=== PATIENT | female | born 1975 | race African-American/Black ===

== ENCOUNTER 2018-04-22 22:49 | Inpatient (IN) | payer SELFPAY ==
[2018-04-22] MEDS ORDERED: Ondansetron HCl/PF 4 MG/2 ML Vial IVP PRN (23:13)
[2018-04-22 23:35] LABS: INR-International Normal Ratio 1.1; PTT 26.5 SEC (22.9-36.1); Prothrombin Time 14.1 SEC (12.0-14.7)
[2018-04-22 23:51] LABS: CKMB 0.6 ng/mL (0-6.6); Troponin I Less than 0.010 ng/mL (< 0.028)
--- NOTE | 2018-04-23 00:35 | HP-2 ---
CODE STATUS: FULL CODE. PRIMARY CARE PHYSICIAN: Nata Rondon PA-C TIME OF EVALUATION: 11:30 p.m. CHIEF COMPLAINT: Left lower extremity pain. HISTORY OF PRESENT ILLNESS: This is a 42-year-old female patient, no significant past medical histor y, came to the hospital after having left lower extremity severe pain, swelling, associated with diff iculty bearing weight with the left lower extremity due to pain, the patient reported that she believ es was triggered by a recent fall that she had a few days ago, no alleviating factors, DVT studies we re done. She was found to have a DVT and also pulmonary embolism. For that reason, she is staying i n the hospital and placing anticoagulation. Symptoms are reported as severe. REVIEW OF SYSTEMS: Constitutional: No fever, no chills. Generalized weakness. Respiratory: No co ugh, no sputum production, no shortness of breath. Cardiovascular: No chest pain, palpitations, yoanna rtness of breath. Gastrointestinal: No nausea, no vomiting, diarrhea or abdominal pain. SEXER: No d izziness, headache, feeling lightheaded. Genitourinary: No burning with urination. Extremities: L eft lower extremity swelling, redness, tenderness. All other systems were reviewed and negative exce pt for the findings mentioned above. PAST MEDICAL HISTORY: No significant history was reported. SOCIAL HISTORY: Lives with family. PSYCH HISTORY: None reported. FAMILY HISTORY: Reported as negative. ALLERGIES: No known drug allergies. HOME MEDICATIONS: No reported home medications. PHYSICAL EXAMINATION: VITAL SIGNS: On presentation blood pressure 135/88 with a heart rate 77, respiratory rate was 20, te mperature 99.3. GENERAL: Patient is alert, oriented, not in any acute distress. HEENT: Normocephalic, conjunctivae. Moist oral mucosa. Eyes anicteric. NECK: No JVD. RESPIRATORY: Bilateral air entry. No rales, no wheezing. Symmetric expansion. CARDIOVASCULAR: Normal rate, regular rhythm. No murmurs, no gallop. No edema. ABDOMEN: Soft, normal bowel sounds. MUSCULOSKELETAL: Baseline range of motion and strength. No tenderness. SKIN: Warm and intact. No pallor, no rash, no redness. NEUROLOGIC: Baseline sensorium. No evidence of any new focal weakness. Baseline speech. Cranial n erve, sensory intact. PSYCHIATRIC: Good mood, no anxiety, oriented optimal judgment. EXTREMITIES: Left lower extremity swelling, redness, pain. LABORATORY DATA: Reviewed. White count 9.5, hemoglobin 10, bands 2%, platelet count 303. Coagulati on, the patient had a positive D-dimer. Reason for evaluation was negative. Chemistry: Potassium 4 .1, sodium 141, chloride 113, carbon dioxide 15, anion gap 17, BUN 11, creatinine 0.7, glucose 9. Tr oponin was negative. LFTs were negative. CT angio was done. The patient has bilateral pulmonary em boli and knee x-ray was done recently showed no evidence of osseous abnormality. Small joint effusio n cannot be excluded, but is not confirmed. The patient was placed in the hospital with following medical problems. PROBLEMS: 1. Pulmonary embolism, bilateral, patient started on anticoagulation, has been hemodynamically stabl e, we will place the patient on telemetry, will monitor overnight, patient will need Lovenox and Coum garrett bridge. We will start tonight. The patient has reported that she has no insurance, so she migh t not be able to afford the new anticoagulation, details were given regarding treatment and duration of treatment. 2. DVT prophylaxis. The patient on full anticoagulation. 3. Risk assignment: Patient has a very high risk for complication due to pulmonary embolism.
[2018-04-23 02:59] LABS: Calc. Creatinine Clearance 142 mL/min (70-130); Estimated GFR-MDRD Greater than 90
[2018-04-23 03:02] LABS: Hemoglobin 10.5 g/dL (12.0-16.0); Platelet Count 264 thou/uL (130-400)
[2018-04-23] MEDS: Acetaminophen 325 MG TAB PO PRN ×2 (04:35→08:50)
[2018-04-23 04:43] LABS: #Basophils 0.1 thou/uL (0.0-0.2); #Eosinphils 0.4 thou/uL (0.0-0.7); #Monocytes 0.9 thou/uL (0.11-0.59); #Neutrophils 4.2 thou/uL (1.40-6.50); %Basophils 0.7 % (0.0-1.0); %Eosinophils 4.5 % (0.0-10.0); %Lymphocytes 35.6 % (21.0-51.0); %Neutrophils 49.2 % (42.0-75.0); Hemoglobin 10.2 g/dL (12.0-16.0); Mean Corpuscular HGB CONC 31.6 g/dL (32.0-36.0); Mean Corpuscular Hemoglobin 23.9 pg (27.0-31.0); Mean Corpuscular Volume 75.5 fL (78.0-98.0); Mean Platelet Volume 7.9 fL (7.4-10.4); Platelet Count 266 thou/uL (130-400); RBC Distribution Width 17.7 % (11.5-14.5); Red Blood Cell (RBC) Count 4.26 mill/uL (4.20-5.40); White Blood Cell (WBC) Count 8.5 thou/uL (4.8-10.8)
[2018-04-23 04:52] LABS: Anion Gap 11 mmol/L (10-20); BUN (Urea Nitrogen) 9 mg/dL (7.0-18.7); Calc. Creatinine Clearance 138 mL/min (70-130); Carbon Dioxide 20 mmol/L (22-29); Chloride 111 mmol/L (98-107); Estimated GFR-MDRD Greater than 90; Glucose 82 mg/dL (70-105); Potassium 3.8 mmol/L (3.5-5.1); Sodium 138 mmol/L (136-145)
[2018-04-23] MEDS: Enoxaparin Sodium 100 MG/ML SYRINGE SC SCH ×2 (08:50→21:46)
[2018-04-23] MEDS ORDERED: Enoxaparin Sodium 80 MG/0.8 ML SYRINGE SC SCH (09:00)
[2018-04-23] MEDS: traMADol HCl 50 MG TAB PO PRN ×3 (14:22→21:47)
[2018-04-23 15:20] LABS: INR-International Normal Ratio 1.1; PTT 28.5 SEC (22.9-36.1); Prothrombin Time 13.8 SEC (12.0-14.7)
[2018-04-23 15:22] LABS: D-Dimer Test 3.33 *mcg/mL (0.27-0.43)
--- NOTE | 2018-04-23 17:23 | ULT ---
ULTRASOUND WITH DOPPLER DUPLEX VENOUS LOWER EXTREMITY LEFT 04/23/18 CPT: 05141 ICD-10-PCS: [id number] HISTORY: Edema, pain and swelling of left lower extremity. TECHNIQUE: Color flow Doppler, spectral waveform analysis of pulsed Doppler, and kirk-scale imaging with james chino and augmentation, were used to evaluate the bilateral common femoral, femoral, popliteal, housekeeping aid ior tibial, and superficial femoral, veins; and the proximal portions of the profunda femoral and gre ater saphenous, veins. FINDINGS: There is incomplete compressibility and diminished flow within the popliteal vein in the left lower e xtremity compatible with partially occlusive thrombus. No additional sites of DVT evident within the imaged left lower extremity. IMPRESSION: Partially occlusive DVT of the left popliteal vein. The findings were conveyed to the patient's nurse, Krystin, at time of the exam. Code CR POS: MARCOS
[2018-04-24] MEDS: Enoxaparin Sodium 100 MG/ML SYRINGE SC SCH ×2 (09:16→21:03)
[2018-04-24] MEDS: Acetaminophen/Codeine 30-300mg Tablet PO PRN ×3 (09:20→21:04)
[2018-04-24] MEDS: Nicotine 14 MG PATCH TD SCH (09:20)
--- NOTE | 2018-04-24 20:17 | PDOC.PN ---
- Subjective Encounter Start Date: 04/24/18 Encounter Start Time: 09:00 Patient seen and examined for DVT/PE. LLE pain +. No overnight events. No CP/ SOB. No bleeding - Objective Resuscitation Status: Resuscitation Status FULL:Full Resuscitation MAR Reviewed: Yes Vital Signs & Weight: Vital Signs (12 hours) Temp Pulse Resp BP Pulse Ox 04/24/18 15:10 98 04/24/18 15:07 98.6 F 82 20 136/62 98 04/24/18 11:45 72 20 125/76 100 04/24/18 09:20 98.3 F Weight Weight 191 lb 11.2 oz I&O: 04/23/18 04/24/18 04/25/18 06:59 06:59 06:59 Intake Total 200 1110 740 Output Total 201 703 6197 Balance -100 710 -1260 Result Diagrams: 04/23/18 04:29 04/23/18 04:29 Additional Labs: Accuchecks 04/23/18 20:55 POC Glucose 100 Radiology Reviewed by me: Yes (CTA - PE, Doppler - LLE DVT) EKG Reviewed by me: Yes (Tele SR) Phys Exam - Physical Examination Constitutional: NAD Respiratory: no wheezing, no rales, no rhonchi, clear to auscultation bilateral Cardiovascular: RRR, no significant murmur, no rub no heaves Gastrointestinal: soft, non-tender, no distention, positive bowel sounds Musculoskeletal: pulses present LLE edema Neurological: non-focal, moves all 4 limbs Dx/Plan (1) Bilateral pulmonary embolism Code(s): I26.99 - OTHER PULMONARY EMBOLISM WITHOUT ACUTE COR PULMONALE Status : Acute Plan: - Comment: Cont Lovenox, Will start Eliquis at dc, Risk of anticoag discussed - Patient stated understanding (2) Left leg DVT Code(s): I82.402 - ACUTE EMBOLISM AND THOMBOS UNSP DEEP VEINS OF L LOW EXTREM Status: Acute Qualifiers: Affected thrombotic vein of extremity: popliteal Plan: - Comment: Plan as above (3) Obesity (BMI 30.0-34.9) Code(s): E66.9 - OBESITY, UNSPECIFIED Status: Acute Comment: Counselled. (4) Tobacco dependence Code(s): F17.200 - NICOTINE DEPENDENCE, UNSPECIFIED, UNCOMPLICATED Status: Acute Plan: - Comment: Counselled. Start Nicotin patch per patient request. - Plan out of bed/ambulate, DVT proph w/lovenox Add Tylenol #3 for LLE pain Review of Systems - Review of Systems Respiratory: negative: Cough, Dry, Shortness of Breath, Hemoptysis, SOB with Excertion, Pleuritic Pain, Sputum, Wheezing Cardiovascular: negative: chest pain, palpitations, orthopnea, paroxysmal nocturnal dyspnea, edema, light headedness, other - Medications/Allergies Allergies/Adverse Reactions: Allergies Allergy/AdvReac Type Severity Reaction Status Date / Time No Known Drug Allergies Allergy Verified 04/23/18 00:18 Medications: Current Medications Acetaminophen (Tylenol) 650 mg PO Q4H PRN PRN Reason: Headache/Fever or Pain Last Admin: 04/23/18 08:50 Dose: 650 mg Acetaminophen/Codeine Phosphate (Tylenol #3) 1 tab PO Q4H PRN PRN Reason: Moderate Pain (4-6) Last Admin: 04/24/18 17:34 Dose: 1 tab Enoxaparin Sodium (Lovenox) 90 mg SC 0900,2100 GORGE Last Admin: 04/24/18 09:16 Dose: 90 mg Nicotine (Nicoderm Patch) 14 mg TD Q24HR GORGE Last Admin: 04/24/18 09:20 Dose: 14 mg Ondansetron HCl (Zofran) 4 mg IVP Q6H PRN PRN Reason: Nausea/Vomiting Sodium Chloride (Flush - Normal Saline) 10 ml IVF PRN PRN PRN Reason: Saline Flush Last Admin: 04/24/18 09:21 Dose: 10 ml
[2018-04-24 21:27] LABS: Cardiolipin IgA Ab 2.4 APL-U/mL (<14 Negative); Cardiolipin IgG Ab 1.2 GPL-U/mL (<10 Negative); Cardiolipin IgM Ab Less than 0.8 MPL-U/mL (<10 Negative); EliA APS New Method **** NEW METHOD ****
[2018-04-25 02:18] LABS: Hemoglobin 10.2 g/dL (12.0-16.0); Platelet Count 264 thou/uL (130-400)
[2018-04-25 02:34] LABS: Calc. Creatinine Clearance 138 mL/min (70-130); Estimated GFR-MDRD Greater than 90
[2018-04-25] MEDS: diphenhydrAMINE 50 MG/ML VIAL IVP PRN ×2 (03:17→08:30)
[2018-04-25] MEDS: Nicotine 14 MG PATCH TD SCH (08:31)
[2018-04-25] MEDS: Enoxaparin Sodium 100 MG/ML SYRINGE SC SCH (08:31)
[2018-04-25 15:21] VITALS: BP 111/74; TEMP 99.2
--- NOTE | 2018-04-26 14:29 | DIS ---
DATE OF DISCHARGE: 04/25/2018 DISCHARGE DISPOSITION: Home. DISCHARGE FOLLOWUP: Follow up with primary care physician, Nata Rondon, in 1 week. DISCHARGE MEDICATIONS: Eliquis 10 mg twice a day for 1 week, followed by 5 mg twice a day. Risks not limited to life-threatening bleeding, discussed with the patient. She stated understanding . BRIEF HOSPITAL COURSE: The patient is a 42-year-old female with tobacco dependence and contraception for fibroids/menorrhagia, presented to the hospital with left lower extremity pain. Please refer to the history and physical for further details. The patient was admitted to the hospital with a diagn osis of pulmonary embolism with left lower extremity DVT. She was started on Lovenox that has been c hanged to Eliquis at discharge. Risks not limited to life-threatening bleeding was discussed with th e patient. She stated understanding. DIAGNOSTIC TESTS: 1. CBC showed WBC 9.5 with hemoglobin 10. 2. D-dimer was 2.93. 3. Troponins were negative. 4. BNP was 25.3. 5. Thrombosis profile is pending at this time. The patient was advised to follow up. 6. CT angiogram of the chest showed bilateral pulmonary embolism. 7. Doppler of left lower extremity showed partially occlusive deep venous thrombosis in the left pop liteal vein. FINAL DIAGNOSES: 1. Bilateral pulmonary embolism. 2. Left leg deep venous thrombosis. 3. Obesity with a BMI at 30. 4. Tobacco dependence. Patient was counseled. 5. History of fibroids with menorrhagia, currently on hormonal supplementation. TESTS PENDING AT DISCHARGE: Thrombosis profile. Primary care physician is advised to follow up on the hemoglobin level, due to history of chronic men orrhagia. Plan of care was discussed with the patient. She stated understanding. Total time coordinating the discharge of this patient was 33 minutes.
[2018-04-26 16:07] LABS: Protein C Activity 83 % (78-152)
[2018-04-26 16:23] LABS: HEX PHOS LA Tube 1 48.7 SEC; HEX PHOS LA Tube 2 49.7 SEC
[2018-04-28 15:41] LABS: Factor VIII Test 385.9 % ACTIVE (56-157)
== END 2018-04-25 15:31 | disposition home or self-care (01) | DRG 176 ==
LOC: ERS 22:49 → 2NO 23:08
PROVIDERS: ADMIT Hospitalist; ATTEND Hospitalist
DX: I26.99 Other pulmonary embolism without acute cor pulmonale (principal); I82.432 Acute embolism and thrombosis of left popliteal vein; E66.9 Obesity, unspecified; Z68.30 Body mass index [BMI] 30.0-30.9, adult; F17.210 Nicotine dependence, cigarettes, uncomplicated
CPT/HCPCS: 36415; 36416; 80048; 81240; 81241; 82553; 82565; 83090; 83880; 84484; 85014; 85018; 85025; 85049; 85240; 85300; 85303; 85305; 85307; 85379; 85598; 85610; 85730; 86147; 90471; 90732; 99285; G0009; J1200; J1650; J2270

== ENCOUNTER 2018-08-16 14:40 | Outpatient (CLI) | payer MEDICAID ==
--- NOTE | 2018-08-16 16:30 | MRI ---
LEFT KNEE MRI WITHOUT IV CONTRAST: 08/16/18 HISTORY: 42-year-old female with history of left knee pain, internal derangement left knee. Multiplanar and multisequence MRI examination of the left knee is performed. No significant abnormal joint effusion. There is minimal blunting of the free edge of the anterior h orn/anterior body junction region certainly concerning for a small free edge tear. There is a trace a mount of fluid within the popliteal fossa. The lateral meniscus appears unremarkable. The anterior an d posterior cruciate ligaments, medial and lateral collateral complexes, and quadricep and patellar t endons appear intact. No significant abnormal marrow signal or acute osteochondral defect. IMPRESSION: Small focus of blunting of the anterior horn/anterior body junction of the medial meniscus, evidence for a small free edge tear. Trace amount of fluid within the popliteal fossa. No evidence for other s ignificant acute internal derangement. POS: PANCHO
== END 2018-08-16 14:41 | disposition home or self-care (01) ==
LOC: BICMRI 14:40
PROVIDERS: ATTEND Orthopaedic Surgery
DX: M23.92 Unspecified internal derangement of left knee (principal); S83.242A Other tear of medial meniscus, current injury, left knee, initial encounter

== ENCOUNTER 2018-08-18 15:22 | Inpatient (IN) | payer MEDICAID, OTHER ==
[2018-08-18] MEDS ORDERED: Aspirin 325 MG TAB ONE (15:45)
[2018-08-18 16:18] LABS: BHCG - Serum Negative (NEGATIVE); Pregs Control Background? CLEAR/WHITE (CLR/WHITE); Pregs Control Bar Appear? YES (CONTROL BAR)
[2018-08-18 17:03] LABS: Bilirubin Negative (Negative); Blood, Urine Large (Negative); Clarity CLEAR (Clear); Glucose, Urine (Dipstick) Negative (Negative); Leukocyte Small (Negative); Nitrite Negative (Negative); Protein, Urine (Dipstick) Trace mg/dL (Neg-Trace); Specific Gravity, Urine 1.025 (1.002-1.036)
[2018-08-18 17:05] LABS: Bacteria/HPF None Seen HPF (None Seen); Hyaline Casts/LPF 4-6 HYALINE CAST LPF (0-3 Hyaline); Pathc Cast-AUWi Flag 1.45 (0-2.49)
[2018-08-18 17:20] LABS: Troponin I Less than 0.010 ng/mL (< 0.028)
[2018-08-18 17:49] VITALS: BMI 30.2
[2018-08-18] MEDS ORDERED: Acetaminophen 325 MG TAB PO PRN (18:42)
[2018-08-18] MEDS ORDERED: Ondansetron PF 4 MG/2 ML Vial IVP PRN (18:42)
[2018-08-18] MEDS ORDERED: Nicotine 14 MG PATCH TD SCH (20:00)
--- NOTE | 2018-08-18 20:03 | HP ---
DATE OF ADMISSION: 08/18/2018 PRIMARY CARE PHYSICIAN: Nata Rondon PA-C. CHIEF COMPLAINT: Chest pain. HISTORY OF PRESENT ILLNESS: This is a pleasant 42-year-old female who has a past medical history of PE, DVT, Uterine fibroids and menorrhagia for the last 9 months. She was transported to [facility] for further evaluation of symptoms. Upon arrival, it was found that her hemoglobin was 5.8 , she was given 1 unit of packed red blood cells in the ED and tolerated well. She states her chest pain started this morning and radiates to her left scapula. She had denied any other symptoms including shortness of breath, abdominal pain, nausea, vomiting. She states her only other complaint was that she has had heavy menstrual periods for the last 9 months. She was seen back in April of this year for treatment of acute DVT and PE, she was treated with Eliquis. She states since she had started Eliquis, she had noticed her bleeding is worsen. She had seen a electrical line mechanic as outpatient and was started on Depo-Provera injections, she has received her third series and tolerating well. She states that she has little improvement with vaginal bleeding as she reports this is constant. At this time, she will be admitted for further evaluation of her chest pain and symptomatic anemia. REVIEW OF SYSTEMS: Constitutional: No fever or chills with mild generalized weakness. Cardiovascular: Left-sided chest pain worse with deep breathing and cough, radiates to left scapula, denies palpitations. Respiratory: No cough, no sputum production, no shortness of breath. Gastrointestinal: No nausea, no vomiting, no diarrhea, no abdominal pain. NETWORK SYSTEMS ANALYST: No dizziness, no headache, no lightheadedness. Genitourinary: Heavy menstrual periods over the last 9 months. Extremities: No pain, no swelling. No weakness noted. All other review of systems are reviewed and are negative except for the findings mentioned above. PAST MEDICAL HISTORY: Positive for PE, DVT, history of uterine fibroids and menorrhagia. SOCIAL HISTORY: Does admit to a half pack a cigarette smoker daily, denies alcohol or any illicit drug use. PSYCHIATRIC HISTORY: None reported. FAMILY HISTORY: Patient denies any family history of cardiac disease. ALLERGIES: CODEINE. HOME MEDICATIONS: Eliquis 5 mg twice daily. PHYSICAL EXAMINATION: VITAL SIGNS: BP 125/76, pulse 84, respirations 18, temperature 99.1, O2 saturations 100% on room air. GENERAL: Patient is alert and oriented x3 with mild acute distress noted due to left-sided chest pain. HEENT: Normocephalic, atraumatic. Scleral anicteric, moist mucous membranes. NECK: No JVD, no carotid bruit. CARDIOVASCULAR: Left-sided chest pain noted, however, nonreproducible. RESPIRATORY: Clear to auscultation bilaterally. No wheezes, no rhonchi, no rales noted. ABDOMEN: Soft, nontender, nondistended. Normal bowel sounds noted. MUSCULOSKELETAL: 5+ strength bilaterally both upper and lower extremities. Moves all extremities equally. No tenderness, no swelling. SKIN: Warm, dry, and intact. No rashes, no redness, no bruising noted. NEUROLOGIC: No evidence of focal weakness, cranial nerves II-XII intact. No sensory deficits noted. PSYCHIATRIC: Normal mood and affect. No anxiety noted. LABORATORY DATA: Troponin less than 0.010, serum negative. Hemoglobin 5.8, WBC 5.9, platelet 407. PT 15.2, INR 1.2, PTT 26.3. D-dimer less than 0.27. Sodium 140, potassium 3.6. Troponin less than 0.010 x3. Urinalysis shows large blood, small leukocyte esterase with 4-6 wbc's. DIAGNOSTIC IMAGING: Chest x-ray revealed no evidence of acute cardiopulmonary disease. ASSESSMENT AND PLAN: 1. Chest pain, we will rule out cardiac etiology with serial troponins, so far troponins are negative. We will check stress test and echocardiogram in the a.m. and further management pending workup. 2. Symptomatic anemia, transfused with packed red blood cells, she is currently receiving second unit of packed red blood cells. Monitor CBC and H and H closely with next draw around 2400. We will monitor signs of bleeding. 3. Uterine fibroids, consult placed for gynecology services for further evaluation. We will continue symptomatic treatment including Tylenol as needed for pain. 4. Menorrhagia, see #3. 5. History of deep venous thrombosis and pulmonary embolism. With current status of anemia, we will hold all anticoagulation until stable. 6. Gastrointestinal prophylaxis with Protonix. 7. Code status: The patient will be FULL CODE. MTDD
[2018-08-18 20:04] LABS: Troponin I Less than 0.010 ng/mL (< 0.028)
[2018-08-18] MEDS: Famotidine/PF 20 mg/2ml Vial SLOW IVP SCH (20:53)
[2018-08-18 23:52] LABS: Troponin I Less than 0.010 ng/mL (< 0.028)
[2018-08-18 23:55] LABS: Hemoglobin 7.8 g/dL (12.0-16.0); Platelet Count 368 thou/uL (130-400)
[2018-08-19 05:10] LABS: #Eosinphils 0.3 thou/uL (0.0-0.7); #Lymphocytes 1.9 thou/uL (1.20-3.40); #Monocytes 0.7 thou/uL (0.11-0.59); #Neutrophils 2.8 thou/uL (1.40-6.50); %Basophils 0.8 % (0.0-1.0); %Eosinophils 4.5 % (0.0-10.0); %Lymphocytes 33.7 % (21.0-51.0); %Monocytes 11.8 % (0.0-10.0); %Neutrophils 49.2 % (42.0-75.0); Hemoglobin 7.5 g/dL (12.0-16.0); Mean Corpuscular HGB CONC 30.6 g/dL (32.0-36.0); Mean Corpuscular Hemoglobin 22.4 pg (27.0-31.0); Mean Corpuscular Volume 73.1 fL (78.0-98.0); Mean Platelet Volume 8.5 fL (7.4-10.4); Platelet Count 360 thou/uL (130-400); RBC Distribution Width 19.8 % (11.5-14.5); Red Blood Cell (RBC) Count 3.36 mill/uL (4.20-5.40); White Blood Cell (WBC) Count 5.7 thou/uL (4.8-10.8)
[2018-08-19 05:29] LABS: ALT (SGPT) 8 U/L (8-55); AST (SGOT) 11 U/L (5-34); Albumin 3.4 g/dL (3.5-5.0); Alkaline Phosphatase 50 U/L (40-150); Anion Gap 11 mmol/L (10-20); BUN (Urea Nitrogen) 7 mg/dL (7.0-18.7); Calc. Creatinine Clearance 135 mL/min (70-130); Calcium 8.5 mg/dL (7.8-10.44); Carbon Dioxide 20 mmol/L (22-29); Chloride 112 mmol/L (98-107); Estimated GFR-MDRD Greater than 90; Glucose 96 mg/dL (70-105); Potassium 3.6 mmol/L (3.5-5.1); Protein, Total 6.4 g/dL (6.0-8.3); Sodium 139 mmol/L (136-145)
[2018-08-19] MEDS: Famotidine/PF 20 mg/2ml Vial SLOW IVP SCH (08:10)
--- NOTE | 2018-08-19 11:43 | CON ---
DATE OF CONSULTATION: 08/19/2018 CONSULTING PHYSICIAN: SAMMI Santana with [employer] CHIEF COMPLAINT: Vaginal bleeding with anemia. HISTORY OF PRESENT ILLNESS: This is a 42-year-old multiparous patient who presented to the emergency department yesterday with chest pain. She was found to have severe anemia with a hemoglobin of 5.8 and given a blood transfusion. She has a history of uterine fibroids and abnormal uterine bleeding for the last 9 months after she started Depo-Provera to treat her fibroids. She is seen by Dr. Jeromy Agrawal for management of her fibroids and is planning to do surgery for definitive management, however, she was diagnosed with a PE and DVT back in April. She is on Eliquis for anticoagulation. She reports that she has had continuous bleeding daily since she started her Depo-Provera 9 months ago but the bleeding got heavier after she was started on her anticoagulation. She reports that at some times she is passing clots, but currently she is having only very light bleeding. She last changed her pad about 12 hours ago. She denies any cramping or abdominal pain. REVIEW OF SYSTEMS: Negative for head, eyes, ears, nose, throat, cardiovascular , respiratory, GI, , neuro, psych, musculoskeletal, skin or constitutional symptoms other than mentioned above. PAST MEDICAL HISTORY: 1. PE and deep venous thrombosis. 2. Uterine fibroids. 3. Abnormal uterine bleeding, likely secondary to fibroid. PAST SURGICAL HISTORY: None. SOCIAL HISTORY: Positive for tobacco use of approximately half pack per day, denies any alcohol or drug abuse. FAMILY HISTORY: Noncontributory. ALLERGIES: CODEINE. MEDICATIONS: Eliquis 5 mg twice daily. PHYSICAL EXAMINATION: VITAL SIGNS: Blood pressure 116/56, pulse 88, respiratory rate 14, temperature 98.4. GENERAL: Awake, alert, in no acute distress. CHEST: Nonlabored breathing. ABDOMEN: Soft, nontender to palpation. Uterus feels enlarged, approximately 16 week size. PELVIC: Deferred. LABORATORY DATA: Hemoglobin this morning 7.5, hematocrit 24.5, platelets 360, 000. Chemistry essentially unremarkable. Urine consistent with contamination. ASSESSMENT AND PLAN: A 42-year-old with abnormal uterine bleeding, likely secondary to fibroids and use of Eliquis. After examining her pad that she has been wearing since last night, her bleeding is now minimal. We did discuss the different medical options to help her stop bleeding. Since she is already on Depo-Provera, starting her on Provera will not likely be very helpful. I would not recommend the use of estrogen given her history and would consider using tranexamic acid if needed for acute bleeding, although this could increase her risk of clot as well. There is also the possibility that Depo-Lupron could be used to help with her bleeding and to bridge her to a time when she can have surgery if that has to be delayed. However, given her history of blood clots and the fact that her bleeding is not heavy currently, I would not recommend starting any of these at this time. She also has not received her Eliquis since her arrival and may not be sufficiently anticoagulated. I do recommend that if that is to be restarted she will need to be watched for an increase in her bleeding prior to being discharged. I have discussed the patient with Dr. Agrawal who is working on getting her set up for surgery and has put in a referral for the patient to be cleared by Cardiology prior. Thank you very much for this consultation. Please let us know if you have any other questions. [facility]
[2018-08-19] MEDS ORDERED: ADENOSINE 60 MG/20 ML VIAL ONE (12:51)
--- NOTE | 2018-08-19 15:34 | PDOC.EVN ---
Event Note - Event Note Event Note: Pt seen and examined in conjunction DESTINY Barkley actively particiapted in the care and medical decision-making process of this patient. I agree with the findings and documentation as in the PA note.
[2018-08-19 15:44] VITALS: BP 120/73; TEMP 98.9
--- NOTE | 2018-08-19 16:51 | ULT ---
DOPPLER VENOUS ULTRASOUND BOTH LOWER EXTREMITIES: Indication: Evaluate for DVT within both lower extremities. TECHNIQUE: Dinero scale, color Doppler, and vascular duplex with spectral analysis was performed of the deep venou s structures of both lower extremities. The common femoral vein, superficial femoral vein, popliteal vein, posterior tibial vein, proximal greater saphenous, and proximal profunda veins were assessed bi laterally. FINDINGS: There is normal compression, flow and augmentation within the deep venous structures of both lower ex tremities. IMPRESSION: No evidence of DVT within both lower extremities. POS: MARCOS
--- NOTE | 2018-08-19 20:55 | DIS ---
DATE OF ADMISSION: 08/18/2018 DATE OF DISCHARGE: 08/19/2018 DISCHARGE DIAGNOSES: 1. Symptomatic anemia, improved. 2. Uterine fibroids, stable. 3. Menorrhagia, stable. 4. History of pulmonary embolism, stable. 5. History of deep venous thrombosis. 6. Chest pain, likely secondary to demand ischemia from uterine bleeding, resolved. CONSULTATIONS: Gynecology services, Dr. Grady. PERTINENT LABORATORY AND DIAGNOSTIC FINDINGS: WBC 5.7, RBC 3.37, hemoglobin on admission 5.8, post-2 units packed red blood cells 7.5. Sodium 139, potassium 3.6, creatinine 0.75, GFR greater than 90, glucose 96, AST 11, ALT 8, troponin less than 0.010 x3. Serum negative. Urinalysis showed large blood, small leukocyte esterase, with no bacteria. Lower extremity Doppler showed no evidence of DVT within both lower extremities. Pending diagnostic findings, stress test and echocardiogram. HOSPITAL COURSE: Mrs. Diaz is a pleasant 42-year-old female who had presented to the [place] ED wi th some complaints of chest pain, it was determined at that time that patient was suffering from aditya re anemia with a hemoglobin of 5.8. She was then transported to [facility] an d was transfused with 1 unit of packed red blood cells. She had reported past medical history of pul monary embolism, DVT, uterine fibroids and menorrhagia. She states the vaginal bleeding had been goi ng on for the last 9 months. She had been seeing her primary spoilage worker for this condition. She w as started on Depo-Provera, which she finished the third cycle recently. She was admitted under obse rvation status for her chest pain, serial troponins were obtained, however, were found to be negative x3. She had undergone a stress test and an echocardiogram. She had been transfused with a total of 2 units of packed red blood cells. Her chest pain resolved after second unit of packed red blood ce lls, repeat CBC did show hemoglobin improved to 7.5. It was at that time she had declined chest pain , shortness of breath or abdominal pain. She had no further complaints. With her history of chronic vaginal bleeding, Gynecology services, Dr. Grady were consulted; however, it was determined that h er vaginal bleeding was just mild at that time. Patient's home dose of Eliquis was held on admission and was not given throughout the hospital course. Her vaginal bleeding did improve during that time . With her history of PE and DVT, Pulmonology Services were contacted for further recommendations. It was recommended at that time a repeat Doppler be obtained, this was found to be negative and showe d no DVT in both lower extremities. Dr. Turner Lieberman also recommended discontinuing of her home Rashmi brayan and starting her on 325 mg aspirin daily. She had been taking Eliquis for about 4 months for PE and DVT, her risk of bleeding at this time outweighs her risk of clot. She was seen and examined pr ior to discharge. She was found to be at baseline and denied chest pain, shortness of breath or abdo rodrick pain. Her hemoglobin remained stable at 7.5 and she was instructed to continue the aspirin 325 mg daily and discontinue home dose of Eliquis. She also was instructed to check CBC and monitor hem oglobin on 08/23/2018 with the results to her PCP, Nata Rondon PA-C. She had verbalized her u nderstanding for discharge plan and was found to be medically stable for discharge on 08/19/2018. DISCHARGE MEDICATIONS: 1. Aspirin 325 mg tablet daily. 2. Acetaminophen 650 mg p.o. every 4 hours as needed for pain. FOLLOWUP: The patient was instructed to follow up with her PCP Nata Rondon PA-C in 1-2 weeks, she will have recheck of her CBC on 08/23/2018 with the results to PCP. She also was instructed to follow up with her spoilage worker for the management of her uterine fibroids and menorrhagia. CONDITION ON DISCHARGE: Stable. ACTIVITY: No restrictions. DIET: Regular. CODE STATUS: FULL CODE. DISPOSITION: Home on 08/19/2018.
--- NOTE | 2018-08-20 11:07 | NM ---
CARDIAC SPECT: HISTORY: A 42-year-old female with chest pain. TECHNIQUE: The patient was not available for rest images on day 2. A stress-only myocardial perfusion scan is performed following the intravenous administration of 27 m Ci Technetium 99m-sestamibi intravenously. Pharmacologic stress with adenosine was monitored and int erpreted by Erica Ritchie PA-C. FINDINGS: A small defect is seen in the distal anterior wall. On the stress images. In the absence of rest i mages, it cannot be said with certainty if this is due to a scar, attenuation artifact, or ischemia. GATED SPECT LVEF: 60%. WALL MOTION EXAM: Normal. IMPRESSION: Incomplete exam. Recommend obtaining rest images to characterize in the finding in the distal anteri or wall. CODE T POS: MARCOS
--- NOTE | 2018-08-23 07:56 | NM ---
CARDIAC SPECT 08/20/18 HISTORY: 42-year-old female with chest pain. TECHNIQUE: A myocardial perfusion scan was performed using the single isotope two day protocol with 27 millicuri es technetium 99m Sestamibi and 9 millicuries technetium 99m Sestamibi injected intravenously Pharmac ologic stress with Adenosine was monitored and interpreted by SAMMI Jacobo. FINDINGS: The stress images demonstrate a small defect in the distal anterior wall with Small mild defect in th e distal anterior wall with near complete reversibility at rest. This may either represent a breast a ttenuation artifact or mild ischemia. GATED SPECT LVEF: 60%. WALL MOTION EXAM: Normal. IMPRESSION: Probable mild ischemia with near complete reversibility in the distal anterior wall versus artifact. Code T POS: MARCOS
== END 2018-08-19 19:22 | disposition home or self-care (01) | DRG 761 ==
LOC: ERS 15:22 → 2NO 16:36
PROVIDERS: ADMIT Internal Medicine; ATTEND Internal Medicine
PROC: B51D1ZZ Fluoroscopy of Bilateral Lower Extremity Veins using Low Osmolar Contrast (ICD-10-PCS; principal; 2018-08-19)
DX: D25.9 Leiomyoma of uterus, unspecified (principal); N92.0 Excessive and frequent menstruation with regular cycle; Z86.711 Personal history of pulmonary embolism; Z79.01 Long term (current) use of anticoagulants; D64.9 Anemia, unspecified
CPT/HCPCS: 36415; 78451; 78452; 80053; 81003; 81015; 84703; 85025; 86850; 86900; 86901; 90471; 90686; 93005; 93017; 93306; 93970; A9500; G0008; J0153; P9016; S0028

== ENCOUNTER 2018-11-26 06:45 | Outpatient (CLI) | payer OTHER ==
[2018-11-26 16:02] LABS: Hemoglobin 9.4 g/dL (12.0-16.0); Mean Corpuscular HGB CONC 29.5 g/dL (32.0-36.0); Mean Corpuscular Hemoglobin 21.8 pg (27.0-31.0); Mean Corpuscular Volume 73.8 fL (78.0-98.0); Mean Platelet Volume 9.6 fL (7.4-10.4); Platelet Count 372 thou/uL (130-400); RBC Distribution Width 18.7 % (11.5-14.5); Red Blood Cell (RBC) Count 4.34 mill/uL (4.20-5.40); White Blood Cell (WBC) Count 6.1 thou/uL (4.8-10.8)
[2018-11-26 16:07] LABS: PTT 24.7 SEC (22.9-36.1); Prothrombin Time 13.3 SEC (12.0-14.7)
[2018-11-26 16:20] LABS: BHCG - Serum Negative (NEGATIVE); Pregs Control Background? CLEAR/WHITE (CLR/WHITE); Pregs Control Bar Appear? YES (CONTROL BAR)
[2018-11-26 16:24] LABS: ALT (SGPT) 8 U/L (8-55); AST (SGOT) 12 U/L (5-34); Albumin 3.9 g/dL (3.5-5.0); Alkaline Phosphatase 69 U/L (40-150); Anion Gap 8 mmol/L (10-20); BUN (Urea Nitrogen) 7 mg/dL (7.0-18.7); Bilirubin, Total 0.6 mg/dL (0.2-1.2); Calc. Creatinine Clearance 0 mL/min (70-130); Carbon Dioxide 23 mmol/L (22-29); Chloride 111 mmol/L (98-107); Estimated GFR-MDRD Greater than 90; Globulin 3.5 g/dL (2.4-3.5); Glucose 89 mg/dL (70-105); Potassium 3.3 mmol/L (3.5-5.1); Protein, Total 7.4 g/dL (6.0-8.3); Sodium 139 mmol/L (136-145)
== END 2018-11-26 06:46 | disposition home or self-care (01) ==
LOC: LABBT 06:45
PROVIDERS: ATTEND Obstetrics & Gynecology
DX: Z01.812 Encounter for preprocedural laboratory examination (principal); D64.9 Anemia, unspecified; N92.0 Excessive and frequent menstruation with regular cycle
CPT/HCPCS: 80053; 84703; 85027; 85610; 85730; 86850; 86900; 86901

== ENCOUNTER 2018-11-30 07:52 | Inpatient (IN) | payer OTHER ==
[2018-11-26 14:55] VITALS: BMI 31.6
--- NOTE | 2018-11-29 19:02 | HP ---
DATE OF PLANNED PROCEDURE: 11/30/2018. PROCEDURES TO BE PERFORMED: Robotic-assisted total laparoscopic hysterectomy with bilateral salpingectomy, possible total abdominal hysterectomy with bilateral salpingectomy. PREOPERATIVE DIAGNOSES: 1. Fibroid uterus. 2. Multiple abdominal surgeries. 3. Anemia with history of transfusion. 4. History of deep venous thrombosis after trauma to lower extremity, off anticoagulation. HISTORY OF PRESENT ILLNESS: Ms. Diaz is a 43-year-old, G3, P3 with long history of uterine fibroids, pain and heavy bleeding that was previously managed well with Depo-Provera, but has been uncontrolled over the last few months. The patient has had to have a blood transfusion due to menorrhagia. The patient is known to have multiple large fibroids and is now requesting definitive management with hysterectomy. The patient's past medical history is significant for a lower extremity DVT, which resulted in a pulmonary embolism last year after a fall. She has been off anticoagulation for a number of months. Her history is also significant for being a half a pack per day smoker. The patient is aware of the risks and benefits of surgery and desires to proceed with definitive management. REVIEW OF SYSTEMS: Negative except as stated in HPI. PAST MEDICAL HISTORY: Denies. PAST SURGICAL HISTORY: Appendectomy, 3 sections, cholecystectomy, suspected ventral hernia repair with mesh. The patient's history unclear and medical records not available. SOCIAL HISTORY: Denies alcohol or drug use, but is an everyday smoker. Smoking half a pack a day. FAMILY HISTORY: Unknown. PAST OB HISTORY: Significant for 3 previous sections. GYNECOLOGIC HISTORY: Contraceptive method, Depo-Provera. Last Pap smear in October 2017 with negative HPV. No history of abnormal Pap, known fibroid uterus. No history of PID or STDs. CURRENT MEDICATIONS: 1. Flagyl 500 mg twice a day. 2. Depo-Provera. ALLERGIES: CODEINE, WHICH CAUSES ITCHING. PHYSICAL EXAMINATION: VITAL SIGNS: Within normal limits. BMI 32. GENERAL: No acute distress. Alert and oriented. HEENT: Grossly normal. LUNGS: Nonlabored breathing. CARDIOVASCULAR: Regular rate and rhythm. ABDOMEN: Soft, nondistended, and nontender. No guarding or masses. Midline vertical incision and laparoscopic scars noted. : Normal external female genitalia. Normal vaginal mucosa. No cervical inflammation or cervical discharge noted. Uterus is enlarged, nontender, mobile. No adnexal tenderness or masses. Bladder and urethra are normal. Normal rectum. No perianal skin lesions, fissure, or mass. SKIN: No rash. MENTAL STATUS: Appropriate mood and affect. LABORATORY STUDIES: Pap smear within normal limits. ASSESSMENT AND PLAN: Ms. Sesar Diaz is a 43-year-old with multiple uterine fibroids to which she is symptomatic with menorrhagia, anemia requiring transfusion, and pelvic pain. The patient is aware that she is high risk for conversion from laparoscopic to laparotomy due to the 3 previous sections and ventral hernia repair. The patient also understands that she is a high surgical risk for DVT with a Caprini, risk score of 6 and a history of venous thromboembolism last year after a fall, which resulted in a pulmonary embolism. The patient has been counseled on other medical options such as Lupron Depot, to which she has declined requesting definitive management at this time. She understands the risks of surgery are to include, but not limited to bleeding, infection, blood clots to the legs and/or lungs, inability to fully diagnose and treat all conditions at the time of surgery, risk of injury to intraabdominal pelvic organs, possible need for future medical and/or surgical management as well as the inherent risk of anesthesia, the patient's questions have been answered to her satisfaction. She desires to proceed with scheduled robotic-assisted total laparoscopic hysterectomy with bilateral salpingectomy with possible conversion to laparotomy. Job ID: [id number]
[2018-11-30] MEDS ORDERED: Gabapentin 300 MG CAP ONE (08:44)
[2018-11-30] MEDS ORDERED: Famotidine/PF 20 mg/2ml Vial ONE (08:44)
[2018-11-30] MEDS ORDERED: CEFAZOLIN 2 GM/50 ML BAG ONE (08:44)
[2018-11-30] MEDS ORDERED: CeleCOXIB 100 MG CAP ONE (08:44)
[2018-11-30] MEDS ORDERED: Midazolam HCl 2 mg/2 ml Vial ONE ×2 (08:45→10:02)
[2018-11-30] MEDS ORDERED: Bupivacaine HCl 0.5%/Epinephrine 1:200,000/PF 30 ml Vial ONE (10:00)
[2018-11-30] MEDS ORDERED: Fentanyl 100 MCG/2 ML VIAL ONE ×3 (10:02→14:06)
[2018-11-30] MEDS ORDERED: Glycopyrrolate 0.2 MG/ML 5 ML SYRINGE ONE (10:56)
[2018-11-30] MEDS ORDERED: Lidocaine 1% PF 5 ML VIAL ONE (10:56)
[2018-11-30] MEDS ORDERED: PROPOFOL 200 MG/20 ML VIAL ONE (10:56)
[2018-11-30] MEDS ORDERED: Rocuronium Bromide 10 MG/ML (10ML VIAL) ONE (10:56)
[2018-11-30] MEDS ORDERED: Ondansetron PF 4 MG/2 ML Vial ONE (10:56)
[2018-11-30] MEDS ORDERED: Dexamethasone 20 MG/5 ML VIAL ONE (10:56)
[2018-11-30] MEDS ORDERED: Ropivacaine HCl/PF 750 ML in Premix Bag 1 BAG NERVE BLCK SCH (13:45)
[2018-11-30] MEDS ORDERED: Ondansetron HCl/PF 4 MG/2 ML Vial IVP PRN (14:38)
[2018-11-30] MEDS ORDERED: Promethazine HCl 25 MG/ML VIAL IM PRN ×4 (14:38→17:21)
[2018-11-30] MEDS ORDERED: Promethazine HCl 25 MG/ML VIAL SLOW IVP PRN (14:38)
[2018-11-30] MEDS ORDERED: ePHEDrine/0.9% NaCl/PF SYRINGE 50 mg/10 ml SLOW IVP PRN ×2 (15:25→15:26)
[2018-11-30] MEDS ORDERED: Naloxone HCl 0.4 mg/ml Vial IVP PRN ×4 (15:25→15:26)
[2018-11-30] MEDS ORDERED: Eucerin (Mineral Oil/Petrolatum,White) 30 gm Jar TOP PRN ×2 (15:25→15:26)
[2018-11-30] MEDS ORDERED: Lactated Ringer's 500 ML IV PRN ×2 (15:25→15:26)
[2018-11-30] MEDS ORDERED: Ondansetron PF 4 MG/2 ML Vial IVP PRN ×3 (15:25→17:21)
[2018-11-30] MEDS ORDERED: diphenhydrAMINE 50 MG/ML VIAL IVP PRN ×2 (15:25→15:26)
[2018-11-30] MEDS ORDERED: Acetaminophen 325 MG TAB PO PRN ×2 (15:25→15:26)
[2018-11-30] MEDS ORDERED: Fentanyl 4 mcg/Bupivacaine 0.1% Cassette 100 ML EPIDURAL SCH (15:30)
[2018-11-30] MEDS ORDERED: Communication Order-Pharmacy FS SCH ×2 (15:30)
[2018-11-30] MEDS ORDERED: Morphine 4 MG/ML VIAL SLOW IVP PRN (17:21)
[2018-11-30] MEDS ORDERED: Zolpidem Tartrate 5 MG TAB PO PRN (17:21)
[2018-11-30] MEDS ORDERED: Ropivacaine 0.2% 550 ML 750 ML NERVE BLCK SCH (17:21)
[2018-11-30] MEDS ORDERED: diphenhydrAMINE 25 MG CAP PO PRN (17:21)
[2018-11-30] MEDS ORDERED: Simethicone Chewable 80 MG TAB PO PRN (17:21)
[2018-11-30] MEDS ORDERED: traMADol HCl 50 MG TAB PO PRN ×2 (17:21)
[2018-11-30] MEDS ORDERED: Bisacodyl 10 MG SUPP PR PRN (17:21)
[2018-11-30] MEDS ORDERED: Nicotine 14 MG PATCH TD SCH (18:00)
[2018-11-30] MEDS: Lactated Ringer's 1,000 ML IV SCH (18:25)
[2018-11-30] MEDS: Ketorolac Tromethamine 30 MG/ML VIAL IVP SCH ×2 (18:26→23:46)
[2018-11-30] MEDS: Sodium Chloride 0.9% 1,000 ML IV SCH (18:27)
--- NOTE | 2018-11-30 19:26 | PDOC.EVN ---
Event Note - Event Note Event Note: HD0 Doing well, duane CLD, minimal discomfort. NAD Nonlabored breathing Abd soft, nondistended, dressing CDI Post op plan of care and goals reviewed.
--- NOTE | 2018-11-30 21:19 | OP ---
DATE OF PROCEDURE: 11/30/2018 PREOPERATIVE DIAGNOSES: 1. Fibroid uterus with menorrhagia. 2. Anemia with history of transfusion. 3. Failed medical management. 4. History of deep venous thrombosis. 5. Three previous sections and other intraabdominal surgical procedures. POSTOPERATIVE DIAGNOSES: 1. Fibroid uterus with menorrhagia. 2. Anemia with history of transfusion. 3. Failed medical management. 4. History of deep venous thrombosis. 5. Three previous sections and other intraabdominal surgical procedures. PROCEDURES PERFORMED: 1. Diagnostic laparoscopy. 2. Supracervical hysterectomy with bilateral salpingectomy. 3. Placement of ON-Q nerve block. ASSISTANTS: MD Krys Singletary PA-C. COMPLICATIONS: None. ESTIMATED BLOOD LOSS: 150 mL. FINDINGS: 1. Laparoscopic findings, adhesions of the small bowel and omentum to the abdominal wall in the midline. 2. Adhesions of the large bowel to the right and left upper quadrants. 3. Enlarged fibroid uterus. 4. Dense adhesion of the bladder to the cervix and lower aspect of the uterus. 5. Normal-appearing tubes and ovaries bilaterally. DESCRIPTION OF PROCEDURE: The patient was taken back to the OR with IV fluids running. When she is in the OR, she was placed in dorsal supine position, and general anesthesia was obtained. After the patient was asleep, she was placed in low dorsal lithotomy position. The abdomen and vagina were prepped and draped in normal fashion for gynecologic laparoscopy. The bladder was drained approximately 400 mL of urine. An operative speculum was placed into the vagina. The cervix was easily visualized, grasped with a single-tooth tenaculum, and sounded to approximately 10 cm. A TEMI Linda-manipulator was assembled in routine fashion with 10-cm tip and 3.5 cm cup. It was placed into the uterus and vagina in normal fashion with the intrauterine and vaginal occluder balloons inflated. The surgeon's gloves were changed. Attention was turned to the laparoscopic portion of the case. Beginning approximately 2 cm above the umbilicus, local anesthesia was placed into the skin. A 5-mm skin incision was made. A Veress needle was placed through this skin incision, and the abdomen was then insufflated without difficulty. Next, a 5-mm Optiview trocar was placed under direct visualization through the 5-mm skin incision into the peritoneal cavity. Omentum draping around the trocar site was immediately noted on view with the laparoscope. There was 1 window clear of omentum, which the laparoscope was passed through and with the patient in Trendelenburg position, the uterus and adnexa were then easily visualized. The uterus was noted to fill the pelvis laterally with limited mobility and concerns for difficulty as accessing the lateral uterine vessels. Under direct visualization, a right lower quadrant 8-mm port was placed. The camera was then placed through this trocar to look back toward the midline umbilicus. Omentum and small bowel were noted around just cephalad to the 5-mm trocar. 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 The bladder was then backfilled with saline to assess the potential adhesive disease of the bladder. The bladder was noted to be adhesed covering the cervix and at the lower inferior portion of the uterus. At this time, the decision was made to convert to laparotomy due to the size of the uterus, the dense adhesions of the bladder, and the limited abdominal space, which did not have bowel adhesions. The trocars were removed, and the gas was released from the abdomen. The patient had a previous vertical midline scar from her previous sections and hernia repair. The incision was opened in the midline with the scalpel. Scalpel was used to carry the incision opened through the subcutaneous tissue to the fascia. Once the fascia was reached, it was incised. Pean clamps were used to undermine the fascia above the rectus abdominis muscles and incised the fascia the full length of the incision. Roberto clamps were placed at the edges of the fascia, which were then dissected off the rectus abdominis muscles. The midline was identified and was bluntly entered. Palpation from the peritoneal entry revealed no bowel adhesions at the length of the fascial incision. The peritoneum was then opened in length of this incision. The incision was stretched, and the bowel was packed away. An O'David O'Jerez retractor was placed into the abdominal cavity for retraction and visualization. The uterus was inspected, and the anatomy was identified. Beginning on the patient's right side, the right round ligament was identified, grasped with a Bud, and suture ligated with Vicryl pop-off. The round ligament was then incised, divided in anterior and posterior leaf. The utero-ovarian ligament on the patient's left side was then identified. The paraovarian tissue was incised with cautery. Pean clamp was placed through this open window to transect the right utero-ovarian ligament. Winn scissors were used to completely transect this tissue. Anil stitch was placed followed by a tie on a pass with the right ovary following weight to the right pelvic sidewall. Attention was then turned to dissecting the anterior and posterior leaf of the round and broad ligament down toward the level of the uterine artery. The anterior leaf was opened up to the bladder reflection. Dense adhesions of the bladder to the cervix and inferior aspect of the uterus were visible as well as palpable. The uterine artery was skeletonized. After this was complete, Anil clamp was placed and the uterine artery was transected and suture ligated. Attention was then turned to the contralateral side. In similar fashion, the round ligament on the patient's left side was identified, suture ligated, transected, and divided into anterior and posterior leaf. The utero-ovarian ligament on the patient's right side was identified. A Anil clamp was placed, and the ligament was transected. The Anil stitch and a tie on a pass were placed for hemostasis, and the left ovarian specimen fell away to the left pelvic sidewall. The broad ligament was further dissected down toward the level of the uterine artery on the patient's left side, which was skeletonized. The anterior leaf was taken down medially, where there appeared to be less bladder adhesions coming from the patient's left side. The adhesions were taken down layer by layer using both sharp and blunt dissection techniques. Once a plane was created between the bladder and the cervix, the space was gently opened up allowing the bladder to fall away from the uterus. Attention was then turned to the contralateral side, where meticulous dissection was done moving lateral to medial from the right uterine artery to complete the dissection of the bladder off the inferior portion of the uterus. Once the bladder was dissected off the uterus, it was still noted to have dense adhesions against the cervix. We continued to layer the tissue off the cervix and gently dissecting the bladder off the portion of the cervix to allow for supracervical hysterectomy. Her cervix was noted to be long and despite time and dissection of the bladder flap, we were unable to completely dissect the bladder away from the cervix. The decision was made to complete the hysterectomy as a supracervical procedure and preserve part of the cervix in order to protect the bladder. Straight Juany Anil clamps were placed on both the right and left sides of the cervix at the level of the uterine artery. Doing so allowed for further dissection of the cervix the large uterus and fibroids, specimen was amputated from the cervix and handed off for pathologic review. After the down time, clamps were placed medial to the uterine arteries and the pedicles were cut down toward the cervix. This tissue was suture ligated. The remaining portion of the cervix that was above the straight Anil dissection was removed leaving a cervical stump only. This portion of the cervix was handed off with the uterine specimen for pathologic review. The cervical stump was then oversewn with Vicryl suture in a running locked fashion with hemostasis of the cervical stump and the lateral pedicles. Attention was turned to removing the fallopian tube segments. Using cautery and free ties on a pass, the right and left fallopian tube segments were removed and handed off for pathologic review. Surgical pedicles and cervical stump were copiously irrigated and suctioned dry. Any small areas of bleeding were able to be controlled with Bovie cauterization. FloSeal was applied to the cervical stump, and pressure was held for approximately 3 minutes as prescribed. All sponges were then removed from the abdomen. The count was correct x2. The surgical pedicles were inspected again with no areas of bleeding noted. The retractor was removed from the abdomen. The peritoneum was then identified and reapproximated with plain gut suture. After the peritoneum was reapproximated, 2 ON-Q catheter pumps were directed through the subcutaneous tissue to rest between the rectus fascia and rectus muscle. After these catheter tips were placed, the fascia was reapproximated with PDS suture in a running fashion. Once the fascia was closed, the subcutaneous tissue was irrigated and dried. No areas of bleeding were noted. Subcutaneous tissue was reapproximated with interrupted plain gut suture. The skin was reapproximated with sterile nicolas. A Prevena negative pressure wound dressing was applied over the skin incision and also to protect the ON-Q catheter insertion sites. The catheters had been primed previously. The patient was then cleaned and dried. Of note, prior to placement of her dressing, her two laparoscopic incisions were closed with Monocryl suture. The patient tolerated the procedure well. She was transferred to the recovery room in good condition after she was extubated. Postoperative plans include initiating Lovenox for DVT prophylaxis at approximately 1200 hours after surgery. The plan was discussed with her family as well as operative findings. Job ID: [id number]
[2018-12-01] MEDS: Sodium Chloride 0.9% 1,000 ML IV SCH (01:13)
[2018-12-01] MEDS: Lactated Ringer's 1,000 ML IV SCH ×2 (01:13→07:19)
[2018-12-01] MEDS: Enoxaparin Sodium 40 MG/0.4 ML SYRINGE SC SCH ×2 (05:29→09:10)
[2018-12-01] MEDS: Ketorolac Tromethamine 30 MG/ML VIAL IVP SCH (05:30)
[2018-12-01 06:22] LABS: Hemoglobin 8.8 g/dL (12.0-16.0); Mean Corpuscular HGB CONC 29.6 g/dL (32.0-36.0); Mean Corpuscular Hemoglobin 21.8 pg (27.0-31.0); Mean Corpuscular Volume 73.8 fL (78.0-98.0); Mean Platelet Volume 9.3 fL (7.4-10.4); Platelet Count 357 thou/uL (130-400); RBC Distribution Width 18.1 % (11.5-14.5); Red Blood Cell (RBC) Count 4.04 mill/uL (4.20-5.40); White Blood Cell (WBC) Count 17.8 thou/uL (4.8-10.8)
[2018-12-01 08:45] VITALS: BP 116/71; TEMP 98.5
--- NOTE | 2018-12-01 09:25 | PDOC.EVN ---
Event Note - Event Note Event Note: HD1 Discharge Note S: Pt is doing very well, has ambulated to RR and voided, is passing gas, min discomfort. Request discharge home today. Sister will give her the lovenox. O: Vital Signs (12 hours) Temp Pulse Resp BP Pulse Ox 12/01/18 08:25 98.5 F 97 20 116/71 99 12/01/18 04:36 98.9 F 97 16 120/57 L 97 11/30/18 23:40 97.4 F L 94 16 115/63 100 Weight Weight 202 lb Laboratory Results - last 24 hr 12/01/18 05:45 WBC 17.8 H RBC 4.04 L Hgb 8.8 L Hct 29.8 L MCV 73.8 L MCH 21.8 L MCHC 29.6 L RDW 18.1 H Plt Count 357 MPV 9.3 A/P: POD1 doing well sp GORGE w OnQ pump placed. Minimal pain. Aware of benefits of early ambulation and DVT prevention reviewed. Continue Lovenox 10 post op. DVVT/PE warning signs reviewed. Plan for DC later today.
[2018-12-05] MEDS ORDERED: Ibuprofen 800 MG TAB PO SCH (22:00)
== END 2018-12-01 10:45 | disposition home or self-care (01) | DRG 743 ==
LOC: SDC 07:52 → EDSTATUS 15:30 → 3SE 17:20 → SDC 17:42
PROVIDERS: ADMIT Obstetrics & Gynecology; ATTEND Obstetrics & Gynecology
PROC: 0UT90ZL Resection of Uterus, Supracervical, Open Approach (ICD-10-PCS; principal; 2018-11-30)
PROC: 0UT70ZZ Resection of Bilateral Fallopian Tubes, Open Approach (ICD-10-PCS; 2018-11-30)
PROC: 0UJD4ZZ Inspection of Uterus and Cervix, Percutaneous Endoscopic Approach (ICD-10-PCS; 2018-11-30)
DX: D25.9 Leiomyoma of uterus, unspecified (principal); N92.0 Excessive and frequent menstruation with regular cycle; D64.9 Anemia, unspecified; K66.0 Peritoneal adhesions (postprocedural) (postinfection); N32.89 Other specified disorders of bladder; F17.210 Nicotine dependence, cigarettes, uncomplicated; Z90.49 Acquired absence of other specified parts of digestive tract; Z98.890 Other specified postprocedural states; Z88.5 Allergy status to narcotic agent; Z86.711 Personal history of pulmonary embolism; Z86.718 Personal history of other venous thrombosis and embolism
CPT/HCPCS: 36415; 85027; 88307; A4306; J0131; J0670; J1100; J1650; J1885; J2001; J2250; J2405; J2704; J2795; J3010; S0028

== ENCOUNTER 2024-05-13 18:54 | Observation (INO) | payer SELFPAY ==
[2024-05-13] MEDS ORDERED: Acetaminophen 325 MG TAB PO PRN (19:51)
[2024-05-13] MEDS ORDERED: Acetaminophen 650 MG Suppository PR PRN (19:51)
[2024-05-13] MEDS ORDERED: hydrALAZINE 20 MG/ML VIAL SLOW IVP PRN (19:55)
[2024-05-13 21:35] VITALS: BMI 31.0
[2024-05-14 04:40] LABS: #Basophils 0.03 10x3/uL (0.0-0.2); %Basophils 0.4 % (0.0-1.0); %Eosinophils 3.1 % (0.0-10.0); %Lymphocytes 34.5 % (21.0-51.0); %Monocytes 10.3 % (0.0-10.0); %Neutrophils 51.4 % (42.0-75.0); Hematocrit 43.3 % (36.0-47.0); Hemoglobin 14.9 g/dL (12.0-16.0); Mean Corpuscular HGB CONC 34.4 g/dL (32.0-36.0); Mean Corpuscular Hemoglobin 33.5 pg (27.0-31.0); Mean Corpuscular Volume 97.3 fL (78.0-98.0); Mean Platelet Volume 9.8 fL (7.4-10.4); Platelet Count 218 10x3/uL (130-400); RBC Distribution Width 13.8 % (11.5-14.5); Red Blood Cell (RBC) Count 4.45 mill/uL (4.20-5.40)
[2024-05-14 05:12] LABS: Anion Gap 10 mmol/L (10-20); BUN (Urea Nitrogen) 9 mg/dL (7.0-18.7); Calc. Creatinine Clearance 141 mL/min (70-130); Calcium 8.7 mg/dL (7.8-10.44); Carbon Dioxide 22 mmol/L (22-29); Cardiac Risk 4.7 (Less than 4.5); Chloride 106 mmol/L (98-107); Cholesterol 192 mg/dl (< 200 Desired); Estimated GFR 107; Glucose 103 mg/dL (70-105); HDL Cholesterol 41 mg/dL (>60 Neg Risk); LDL Cholesterol, Calculated 125 mg/dL; Potassium 3.1 mmol/L (3.5-5.1); Sodium 135 mmol/L (136-145); Triglycerides 130 mg/dL (Less than 150)
[2024-05-14] MEDS: Aspirin 81 mg Enteric Coated Tablet PO SCH (08:23)
[2024-05-14 13:27] VITALS: BP 116/78; TEMP 98.3
[2024-05-14] MEDS ORDERED: Atorvastatin Calcium 40 MG TAB PO SCH (21:00)
== END 2024-05-14 17:06 | disposition home or self-care (01) ==
LOC: 2SE 18:54
PROVIDERS: ADMIT Internal Medicine; ATTEND Internal Medicine
DX: G45.9 Transient cerebral ischemic attack, unspecified (principal); R29.90 Unspecified symptoms and signs involving the nervous system; R29.810 Facial weakness; I10 Essential (primary) hypertension; E78.5 Hyperlipidemia, unspecified; F17.200 Nicotine dependence, unspecified, uncomplicated; Z88.5 Allergy status to narcotic agent; Z79.899 Other long term (current) drug therapy; Z79.82 Long term (current) use of aspirin; Z90.49 Acquired absence of other specified parts of digestive tract
CPT/HCPCS: 36415; 70551; 80048; 80061; 85025; G0378